=== PATIENT | male | born 1975 | race Caucasian/White ===

== ENCOUNTER → 2019-12-18 11:08 | Outpatient (BNVA) | payer BC, SELFPAY | PROVIDERS: Referring Provider Electrodiagnostic Medicine; Visit Provider Podiatrist Foot & Ankle Surgery | DX: M77.32 Calcaneal spur, left foot (principal); M77.31 Calcaneal spur, right foot; M79.672 Pain in left foot; M79.671 Pain in right foot | CPT/HCPCS: 73630 ==

== ENCOUNTER 2020-02-02 12:58 | Emergency (ER) | payer BC, SELFPAY ==
[2020-02-02 13:14] VITALS: BP 150/92; PULSE 69; RESP 16; TEMP 36.6; O2SAT 97; BMI 29.7
--- NOTE | 2020-02-02 13:17 | ED_ITS ---
HPI - Abdominal Pain General: Chief Complaint: Abdominal Pain Stated Complaint: L SIDED PAIN Time Seen by Provider: 02/02/20 13:08 History of Present Illness: HPI narrative: 44-year-old male presents emergency room with left-sided abdominal pain denies hematochezia melena hematemesis or calf cramps no fever he is not noticed any association with urination no dysuria urgency or frequency or hematuria denies vomiting or diarrhea began 2 days ago has been getting progressively worse today. He is not been taking large amounts of NSAIDs sick in a couple of Tylenol no previous abdominal surgeries. MD elicited complaint: abdominal pain Pertinent past history: none Onset (ago): day(s) (2 days) Pain Consistency: intermittent Location: LUQ Severity: moderate Quality: cramping and aching Radiation: LLQ Migration to: LLQ Exacerbating factors: nothing Relieving factors: nothing Associated Symptoms: Reports anorexia; Denies bloating, chills, coffee ground emesis, constipation, diarrhea, dysuria, fever(s), hematochezia, hematemesis, melena, nausea and vomiting Review of Systems Const: Denies: fever, chills, body aches, change in appetite, fatigue or malaise ENMT: Denies: throat pain, ear pain, nasal discharge or nasal congestion Card: Denies: chest pain, edema, shortness of breath on exertion or shortness of breath when lying down Resp: Denies: shortness of breath, productive cough or non-productive cough GI: Reports: abdominal pain; Denies: nausea, vomiting, vomiting blood, coffee grounds in vomit, diarrhea, constipation, bloating, blood in stool or black tarry stool : Denies: flank pain, painful urination, urinary frequency or urinary urgency Skin/Breast: Denies: rash or itching PFS ED PFSH: Medical History (Updated 02/02/20 @ 14:20 by Jroge Rodriguez DO) Hypertension Plantar fasciitis, bilateral Raynauds phenomenon Family History (Updated 12/18/19 @ 11:20 by Kianna Kaufman LPN) Other Hypertension Denies family history of Diabetes CAD (coronary artery disease) Clotting disorder Dementia Hyperlipidemia Psychiatric illness Chronic kidney disease (CKD) Suicide Anesthesia complication Bleeding disorder Family history of premature coronary artery disease Lung disease Cancer Stroke Social History (Updated 12/18/19 @ 11:21 by Kianna Kaufman LPN) Smoking and tobacco status: former smoker Second hand smoke exposure: Yes Alcohol intake: current Alcohol intake frequency: 3 or more drinks per day Desire information about alcohol rehabilitation?: No Lives independently: Yes Household members: spouse and children Housing: House Marital status: Number of children: 2 Physical Exam Const: COMMON NORMALS: no apparent distress GENERAL APPEARANCE: cooperative and comfortable ORIENTATION/CONSCIOUSNESS: Yes awake, Yes oriented to person, Yes oriented to place and Yes oriented to time HENMT: COMMON NORMALS: normocephalic, head/scalp atraumatic, hearing grossly normal bilaterally, external ears normal, EAC's normal, TM's normal bilaterally, nasal mucous membranes and turbinates normal, moist oral mucous membranes and oropharynx normal HEAD & SCALP: normocephalic and atraumatic NOSE: nasal mucous membranes and turbinates normal EXTERNAL EAR: Yes external ears normal EXTERNAL AUDITORY CANAL: EAC's normal TYMPANIC MEMBRANE: TM's normal bilaterally Eye: COMMON NORMALS: PERRL, EOMs intact bilaterally, conjunctivae normal and no scleral icterus CONJUNCTIVA: Yes conjunctivae normal PUPIL: Yes PERRL Neck/C-Spine: COMMON NORMALS: full ROM, no lymphadenopathy, supple and no JVD Lymph: LYMPHATIC: no lymphadenopathy noted and no lymphedema noted Resp: COMMON NORMALS: normal respiratory effort, no retractions, no use of accessory muscles and clear to auscultation bilaterally AUSCULTATION: clear to auscultation bilaterally Cardio: COMMON NORMALS: no JVD, regular rate, regular rhythm and no murmurs RATE: regular rate RHYTHM: regular rhythm GI: COMMON NORMALS: soft to palpation and no hepatosplenomegaly AUSCULTATION: Yes normoactive bowel sounds PALPATION: Yes soft, No tender, No guarding and Yes no hepatosplenomegaly Extremity: COMMON NORMALS: normal to inspection, normal capillary refill, no clubbing, cyanosis or edema, no calf tenderness and no pedal edema Neuro: SENSORIUM/ORIENTATION: Yes oriented to person, Yes oriented to place and Yes oriented to time Skin: COMMON NORMALS: no rashes or lesions noted GENERAL SKIN EXAM: no rashes or lesions noted Course Vital Signs: Vital signs: Vital Signs Temperature 97.9 F 02/02/20 13:14 Pulse Rate 57 L 02/02/20 13:50 Respiratory Rate 16 02/02/20 13:50 Blood Pressure 143/100 02/02/20 13:50 Pulse Oximetry 100 02/02/20 13:50 MDM - Abdominal Pain MDM Narrative: Medical decision making narrative: Robert findings with the patient he feels like the stones are he passed he said he had a brief of sudden pain and then suddenly all the pain was relieved. We will still go ahead and discharge home with a urine strainer as well as pain medications antiemetics and the tamsulosin. Follow-up with Dr. Martinez early next week. Lab Data: Attestation: I reviewed the patient's lab results. Labs: Lab Results 02/02/20 02/02/20 02/02/20 Range/Units 13:20 13:48 13:48 WBC 6.2 (4.0-10.0) 10^3/ uL RBC 5.29 (4.1-5.3) 10^6/u L Hgb 15.5 (11.7-16.6) g/dL Hct 47.2 (42.0-52.0) % MCV 89.2 (80-94) fL MCH 29.3 (28.0-34.0) pg MCHC 32.8 (30.0-36.0) g/dL RDW 13.2 (12.1-15.1) % Plt Count 228 (130-400) 10^3/c mm MPV 11.2 H (7.4-10.4) fL Neut % (Auto) 63.9 % Lymph % (Auto) 19.2 % [place] % (Auto) 9.5 % Eos % (Auto) 6.4 % Baso % (Auto) 0.8 % Neut # (Auto) 4.0 (1.8-7.7) 10^3/u L Lymph # (Auto) 1.2 (0.8-4.8) 10^3/u L [place] # (Auto) 0.6 (0.2-0.9) 10^3/u L Eos # (Auto) 0.4 (0.0-0.8) 10^3/u L Baso # (Auto) 0.1 (0.0-0.1) 10^3/u L Nucleated RBC % (a uto) 0 % Nucleated RBCs # 0.0 /100WBC Sodium 139 (136-145) mmol/L Potassium 4.4 (3.5-5.1) mmol/L Chloride 102 (98-107) mmol/L Carbon Dioxide 27 (22-29) mmol/L Anion Gap 14.4 (5-19) BUN 14 (6-20) mg/dL Creatinine 1.0 (0.7-1.2) mg/dL GFR Calculation 80.4 L (90-130) mL/min Glucose 162 H (65-115) mg/dL Calculated Osmolal ity 288 (285-295) mOsm/k g Calcium 9.8 (8.5-10.5) mg/dL Total Bilirubin 0.5 (0.15-1.2) mg/dL AST 18 (0-40) U/L ALT 22 (0-41) U/L Alkaline Phosphata se 69 (40-130) IU/L Total Protein 7.6 (6.6-8.7) g/dL Albumin 4.6 (3.5-5.2) g/dL Globulin 3.0 (1.3-4.6) g/dL Lipase 33 (13-60) U/L Urine Color Dark yellow (Yellow) Urine Appearance Hazy A (CLEAR) Urine pH 7 (5-7) Ur Specific Gravit y 1.010 (1.005-1.030) Urine Protein Neg (Negative) Urine Glucose (UA) Norm (Normal) Urine Ketones Negative (Negative) Urine Blood 3+ H (Negative) Urine Nitrate Negative (Negative) Urine Bilirubin Neg (NEGATIVE) Urine Urobilinogen 1 H (Negative) mg/dL Ur Leukocyte Una ase Negative (Negative) Urine RBC >100 H (0-2) /hpf Urine WBC None (0-5) /hpf Ur Squamous Epith Cells Rare (0-5) Urine Bacteria 1+ H (NONE) Urine Mucus 2+ Imaging Data ^: CT Abd/Pel: Radiologist's impression: PROCEDURE INFORMATION: Exam: CT Abdomen And Pelvis With Contrast Exam date and time: 02/02/2020 1:26 PM Age: 44 years old Clinical indication: Abdominal pain; Localized; Left upper quadrant (luq); Additional info: Abdominal pain TECHNIQUE: Imaging protocol: Computed tomography of the abdomen and pelvis with intravenous contrast. Total DLP: 1093.11 mGy-cm Radiation optimization: All CT scans at this facility use at least one of these dose optimization techniques: automated exposure control; mA and/or kV adjustment per patient size (includes targeted exams where dose is matched to clinical indication); or iterative reconstruction. Contrast material: Omnipaque 300; Contrast volume: 95 ml; Contrast route: IV; COMPARISON: No relevant prior studies available. FINDINGS: Liver: Normal. No mass. Gallbladder and bile ducts: The gallbladder is partially contracted. Pancreas: Normal. No ductal dilation. Spleen: Normal. No splenomegaly. Adrenals: Normal. No mass. Kidneys and ureters: The left kidney shows mild pelviectasis with mild perinephric stranding, with a 5.6 x 3.4 x 3.3 mm intraureteral calculus at the L5-S1 level. Mild relative delay and left renal enhancement. Right mid renal lateral 2.9 mm calyceal calculus. Stomach and bowel: Sigmoid colonic diverticula are present without evidence of diverticulitis. Appendix: The vermiform appendix is normal. Intraperitoneal space: Unremarkable. No free air. No significant fluid collection. Vasculature: The RIGHT iliac arteries show mild atherosclerotic calcifications without evidence of aneurysm. Calcified phleboliths are present in the lower pelvis bilaterally. Lymph nodes: No enlarged lymph nodes. Bladder: The urinary bladder is decompressed and difficult to assess. Reproductive: Unremarkable as visualized. Bones/joints: Anterior bridging bilateral sacroiliac joint marginal osteophytes. Mild chronic L1 vertebral body compression deformity. Lower thoracic and upper lumbar vertebral body marginal osteophytes. Mild L5-S1 spondylosis. Mild primary osteoarthritis of the bilateral hip joints. Soft tissues: Bilateral inguinal hernias are present containing only intra-abdominal fat. CT/CT abdomen pelvis w con* [id number] IMPRESSION: 1. Left obstructive uropathy secondary to an abdominal intraureteral calculus. 2. Right renal calyceal lithiasis. 3. Diverticulosis. 4. Bilateral small inguinal hernias. Radiation Dose CTDIVOL = (mGy): DLP = 1093.11 (mGy-cm) Dictated By:Abe Lyn MD Discharge Plan Discharge Patient Disposition: Home, Self-Care Clinical Impression: Left nephrolithiasis Condition: Stable Prescriptions: New hydrocodone-acetaminophen 5-325 mg tablet 1 tab PO Q6H PRN (Reason: pain) Qty: 30 RF: 0 Zofran 4 mg tablet 4 mg PO Q6H PRN (Reason: nausea and vomiting) Qty: 15 RF: 0 tamsulosin 0.4 mg capsule 0.4 mg PO DAILY Qty: 14 RF: 0 No Action lisinopril 40 mg tablet 40 mg PO DAILY RF: 0 Multiple Vitamins Tablet 1 tab PO DAILY RF: 0 vitamin B complex Tablet 1 tab PO DAILY RF: 0 Discharge Orders: Discharge Order (Routine); Ordered 02/02/20 Ordered By: Jorge Rodriguez Referrals: Keith Martinez MD [Physician] - (Case management will call for follow-up appointment with Dr. Martinez) Discharge Diet: Usual diet Discharge Activity: Increase activity as tolerated Activity Restrictions/Additional Instructions: Strain urine to collect stone for pathology. Case management will call to get you an appointment to follow-up with Dr. Martinez. Coding Level of Care Code ED Programmer Analyst for [facility] Fwd Exam Comprehensive
[2020-02-02 13:20] VITALS: BP 150/92; PULSE 68; RESP 16; O2SAT 100
[2020-02-02 13:50] VITALS: BP 143/100; PULSE 57; RESP 16; O2SAT 100
[2020-02-02 13:50] LABS: Add Urine Microscopic? YES; Bilirubin Urine Neg (NEGATIVE); Blood Urine 3+ (Negative); Glucose Urine UA Norm (Normal); Ketones Urine Negative (Negative); Leukocyte Esterase Urine Negative (Negative); Nitrate Urine Negative (Negative); Protein Urine Neg (Negative); Urine Appearance Hazy (CLEAR); Urine Color Dark Yellow (Yellow); Urobilinogen Urine 1 mg/dL (Negative); pH Urine 7 (5-7)
[2020-02-02] MEDS: sodium chloride 0.9% 1,000 ML 999 ML IV (13:50)
[2020-02-02 13:53] LABS: Basophils # 0.1 10^3/uL (0.0-0.1); Basophils % 0.8 %; Eosinophils # 0.4 10^3/uL (0.0-0.8); Eosinophils % 6.4 %; Hematocrit 47.2 % (42.0-52.0); Hemoglobin 15.5 g/dL (11.7-16.6); Lymphocytes # 1.2 10^3/uL (0.8-4.8); Lymphocytes % 19.2 %; Mean Corpuscular HGB Conc 32.8 g/dL (30.0-36.0); Mean Corpuscular Hemoglobin 29.3 pg (28.0-34.0); Mean Corpuscular Volume 89.2 fL (80-94); Mean Platelet Volume 11.2 fL (7.4-10.4); Monocytes # 0.6 10^3/uL (0.2-0.9); Monocytes % 9.5 %; Neutrophils % 63.9 %; Nucleated Red Blood Cells % 0 %; Platelet Count 228 10^3/cmm (130-400); Red Blood Count 5.29 10^6/uL (4.1-5.3); Red Cell Distribution Width 13.2 % (12.1-15.1); White Blood Count 6.2 10^3/uL (4.0-10.0)
[2020-02-02 13:54] LABS: Bacteria Urine 1+; Mucus Urine 2+; RBC Urine >100 /hpf (0-2); Squamous Epithelial Cell Urine RARE (0-5)
[2020-02-02 13:55] LABS: Add Urine Culture? Yes
--- NOTE | 2020-02-02 13:59 | PC.NURSE ---
Pt to CT
[2020-02-02] MEDS: iohexol 300 mg/mL 100 mL Btl IV (14:02)
[2020-02-02 14:12] LABS: Alanine Aminotransferase 22 U/L (0-41); Albumin Level 4.6 g/dL (3.5-5.2); Alkaline Phosphatase 69 IU/L (40-130); Anion Gap 14.4 (5-19); Aspartate Amino Transferase 18 U/L (0-40); Blood Urea Nitrogen 14 mg/dL (6-20); Calcium 9.8 mg/dL (8.5-10.5); Carbon Dioxide 27 mmol/L (22-29); Chloride 102 mmol/L (98-107); Glomerular Filtration Rate 80.4 mL/min (90-130); Glucose 162 mg/dL (65-115); Osmolality Calculated 288 mOsm/kg (285-295); Potassium 4.4 mmol/L (3.5-5.1); Sodium 139 mmol/L (136-145); Total Bilirubin 0.5 mg/dL (0.15-1.2); Total Protein 7.6 g/dL (6.6-8.7)
--- NOTE | 2020-02-02 14:17 | PC.NURSE ---
Pt returned from CT
[2020-02-02 14:43] LABS: Lipase 33 U/L (13-60)
[2020-02-02 15:01] VITALS: BP 118/99; PULSE 69; RESP 17; O2SAT 98
--- NOTE | 2020-02-04 10:41 | DCPLANNER ---
cattle manager had message to schedule a follow up appointment for patient with Dr. Martinez. cattle manager called the office of Dr. Martinez, spoke with Rita. cattle manager gave clinic patients information, was told that patients information would be printed and given to Kathya for review. Clinic will call patient with appointment information. cattle manager will call for appointment information.
--- NOTE | 2020-02-07 10:00 | DCPLANNER ---
Patient had an appointment scheduled for 02.05.[address] Martinez. Patient did attend the appointment.
== END 2020-02-02 15:03 | disposition home or self-care (01) ==
PROVIDERS: Emergency Provider Family Medicine
DX: N20.0 Calculus of kidney (principal); I10 Essential (primary) hypertension; I73.00 Raynaud's syndrome without gangrene; Z87.891 Personal history of nicotine dependence
CPT/HCPCS: 12345; 36415; 74177; 80053; 81001; 83690; 85025; 87086; 96360; 96361; 96374; 96375; 99284; A9270; J7030; Q9967

== ENCOUNTER 2020-02-05 10:29 | Emergency (ER) | payer BC, SELFPAY ==
[2020-02-05 10:42] VITALS: BP 135/89; RESP 51; TEMP 36.5; O2SAT 98; BMI 29.8
--- NOTE | 2020-02-05 10:56 | CT_ITS ---
WS: [id number] CT ABDOMEN PELVIS TECHNIQUE: Noncontrast CT of the abdomen and pelvis with coronal and sagittal reformatted images. CLINICAL INFORMATION: Right flank pain COMPARISON: February 02, 2020 DLP: 1605.[address] scans at [facility] use at least one of these dose optimization techniques: automat ed exposure control; mA and/or kV adjustment per patient size (includes targeted exams where dose is matched to clinical indication); or iterative reconstruction. FINDINGS: Previously described left obstructive uropathy has improved. Calculus now at the distal UVJ bladder o rifice measuring 5.5 mm. New mild right ureterectasis but no evidence of obstructing right ureteral calculus. Previously descr ibed right renal parenchymal calculus is no longer visualized and likely passed in the interval accou nting for right flank pain and ureterectasis. Mild diffuse bladder wall thickening can be seen with chronic cystitis or bladder outlet obstruction . Calcified slightly enlarged prostate. Prostate measures approximately 2.5 x 4.6 cm. No other significant changes from previous. Lung bases are well aerated. Noncontrast liver is normal. Normal noncontrast gallbladder. Adrenal glands are normal. Noncontrast pancreas is unremarkable. Nor mal GE junction. Normal caliber abdominal aorta. Diverticulosis. No evidence of acute diverticulitis. No evidence of small or large bowel obstruction. Normal appendix. Incidental fat-containing bilatera l inguinal hernias. No inguinal lymphadenopathy. CT/CT kidney stone [id number] IMPRESSION: 1. Previously described obstructing left ureteral calculus has traversed dista lly now at the UVJ in the bladder orifice. Obstructive left uropathy findings h ave improved. 2. No evidence of obstructing right ureteral calculus. Although mild right ure terectasis is new likely due to recently passed calculus. Previously described right renal parenchymal calculus is no longer visualized and likely passed in t he interval. 3. No other significant changes from previous
--- NOTE | 2020-02-05 10:59 | W.ED.ABDPA2 ---
Documented by User: ROBERT Vale 02/06/20 07:15 HPI - Abdominal Pain General: Chief Complaint: Abdominal Pain Stated Complaint: ABDOMEN PAIN Time Seen by Provider: 02/05/20 10:42 History of Present Illness: HPI narrative: Patient is a 44-year-old male who comes to the ED with right flank pain. Patient was recently seen here on February 01 and diagnosed with a left ureter kidney stone. Patient started having new pain on his right flank and described them as similar to his previous kidney stone. Patient says he had some blood in the urine couple days ago. He has been straining his urine but has not caught a stone, but left side/flank pain has resolved. He currently takes Flomax and was scheduled to see Dr. Martinez today, but he called their office to discuss his new symptoms of right-sided flank pain and Dr. Martinez told him to come to the ED to be evaluated and to get a CT scan. While here in the ED his right flank pain is very mild and does not want any meds for pain. He was having nausea this morning that has since resolved. Denies any fever or chills, chest pain, shortness of breath, dysuria, diarrhea, nausea/vomiting. Associated Symptoms: Reports hematuria and nausea; Denies chills, constipation, diarrhea, dysuria, fever(s), hematochezia and vomiting Review of Systems Const: Denies: fever, chills or fatigue Eyes: Denies: change in vision or eye discomfort ENMT: Denies: throat pain, painful swallowing, nasal discharge or nasal congestion Card: Denies: chest pain, palpitations, edema, swelling of feet/ankles, shortness of breath on exertion or shortness of breath when lying down Resp: Denies: shortness of breath, productive cough or non-productive cough GI: Reports: nausea; Denies: abdominal pain, vomiting, diarrhea, constipation or blood in stool : Reports: flank pain and blood in urine; Denies: difficulty urinating or painful urination Musc: Denies: neck pain, back pain or extremity swelling Skin/Breast: Denies: rash or new lesion Neuro: Denies: headache, numbness in extremities or weakness in extremities PFS ED PFSH: Medical History Calculus of proximal left ureter Hypertension Plantar fasciitis, bilateral Raynauds phenomenon Right renal stone Right ureteral calculus Surgical History H/O thumb surgery Family History Father Cancer prostate cancer Heart disease Mother Hypertension Denies family history of Diabetes CAD (coronary artery disease) Clotting disorder Dementia Hyperlipidemia Psychiatric illness Chronic kidney disease (CKD) Suicide Anesthesia complication Bleeding disorder Family history of premature coronary artery disease Lung disease Stroke Social History Smoking and tobacco status: former smoker Second hand smoke exposure: Yes Alcohol intake: current Alcohol intake frequency: holidays/special occasions only Desire information about alcohol rehabilitation?: No Lives independently: Yes Household members: spouse and children Housing: House Marital status: Number of children: 2 Current occupational status: employed History of recent travel: No Physical Exam Const: COMMON NORMALS: no apparent distress, oriented x3 and healthy appearing GENERAL APPEARANCE: comfortable; not in distress HENMT: COMMON NORMALS: normocephalic HEAD & SCALP: normocephalic MOUTH: oral and palatal mucosa normal THROAT: posterior oropharynx normal and uvula midline Eye: COMMON NORMALS: PERRL PUPIL: Yes PERRL Neck/C-Spine: COMMON NORMALS: supple GENERAL: Yes normal visual inspection Resp: COMMON NORMALS: normal respiratory effort, no retractions, no use of accessory muscles and clear to auscultation bilaterally EFFORT & INSPECTION: Yes able to speak in complete sentences and No respiratory distress AUSCULTATION: clear to auscultation bilaterally Cardio: COMMON NORMALS: regular rate, regular rhythm, S1 normal heart sound, S2 normal heart sound, no gallops, no clicks, no murmurs and peripheral pulses 2+ throughout RATE: regular rate RHYTHM: regular rhythm HEART SOUNDS: S1 normal and S2 normal PERIPHERAL PULSES: pulses 2+ throughout GI: COMMON NORMALS: normal to inspection, nondistended, normoactive bowel sounds, soft to palpation, non-tender and no masses AUSCULTATION: Yes normoactive bowel sounds PALPATION: Yes soft : COMMON NORMALS: Yes no CVA tenderness BLADDER/KIDNEY EXAM: Yes bladder normal to palpation and Yes no CVA tenderness Back/Pelvis: COMMON NORMALS: no CVA tenderness Extremity: COMMON NORMALS: normal to inspection Neuro: COMMON NORMALS: oriented x3 GAIT: Yes normal gait Skin: COMMON NORMALS: no rashes or lesions noted GENERAL SKIN EXAM: no rashes or lesions noted and dry skin Course Vital Signs: Vital signs: Vital Signs Temperature 97.7 F 02/05/20 10:42 Pulse Rate 73 02/05/20 12:41 Respiratory Rate 17 02/05/20 12:41 Blood Pressure 132/82 02/05/20 12:41 Pulse Oximetry 98 02/05/20 12:41 MDM - Abdominal Pain MDM Narrative: Medical decision making narrative: Patient is a 44-year-old male who comes to the ED with right flank pain. The urinalysis was positive for blood. CBC and CMP were normal. CT showed no obstructing stone in the right or left ureters. Previous left ureter stone has now moved into the bladder. Also previously right renal parenchymal calculus seen on previous scan is no longer visualized. Evidence of right ureterectasis, along with clinical symptoms suggestive of patient recently passing right-sided kidney stone. Patient was told to continue taking tamsulosin and has a follow-up appointment with Dr. Martinez set up. He was told to continue straining urine to catch stone and to drink plenty of fluids. Patient understood and agreed with plan. Return if symptoms worsen. Lab Data: Attestation: I reviewed the patient's lab results. Labs: Lab Results 02/05/20 02/05/20 02/05/20 Range/Units 11:10 11:10 12:01 WBC 5.7 (4.0-10.0) 10^3/ uL RBC 4.74 (4.1-5.3) 10^6/u L Hgb 13.9 (11.7-16.6) g/dL Hct 42.8 (42.0-52.0) % MCV 90.3 (80-94) fL MCH 29.3 (28.0-34.0) pg MCHC 32.5 (30.0-36.0) g/dL RDW 13.2 (12.1-15.1) % Plt Count 186 (130-400) 10^3/c mm MPV 11.3 H (7.4-10.4) fL Neut % (Auto) 67.8 % Lymph % (Auto) 18.0 % Loving % (Auto) 7.0 % Eos % (Auto) 6.3 % Baso % (Auto) 0.7 % Neut # (Auto) 3.9 (1.8-7.7) 10^3/u L Lymph # (Auto) 1.0 (0.8-4.8) 10^3/u L Loving # (Auto) 0.4 (0.2-0.9) 10^3/u L Eos # (Auto) 0.4 (0.0-0.8) 10^3/u L Baso # (Auto) 0.0 (0.0-0.1) 10^3/u L Nucleated RBC % (a uto) 0 % Nucleated RBCs # 0.0 /100WBC Sodium 141 (136-145) mmol/L Potassium 4.4 (3.5-5.1) mmol/L Chloride 104 (98-107) mmol/L Carbon Dioxide 26 (22-29) mmol/L Anion Gap 15.4 (5-19) BUN 10 (6-20) mg/dL Creatinine 0.9 (0.7-1.2) mg/dL GFR Calculation 90.8 (90-130) mL/min Glucose 130 H (65-115) mg/dL Calculated Osmolal ity 290 (285-295) mOsm/k g Calcium 9.7 (8.5-10.5) mg/dL Total Bilirubin 0.7 (0.15-1.2) mg/dL AST 17 (0-40) U/L ALT 19 (0-41) U/L Alkaline Phosphata se 57 (40-130) IU/L Total Protein 7.0 (6.6-8.7) g/dL Albumin 4.1 (3.5-5.2) g/dL Globulin 2.9 (1.3-4.6) g/dL Lipase 15 (13-60) U/L Urine Color Yellow (Yellow) Urine Appearance Clear (CLEAR) Urine pH 6 (5-7) Ur Specific Gravit y 1.015 (1.005-1.030) Urine Protein Neg (Negative) Urine Glucose (UA) Norm (Normal) Urine Ketones Negative (Negative) Urine Blood 3+ H (Negative) Urine Nitrate Negative (Negative) Urine Bilirubin Neg (NEGATIVE) Urine Urobilinogen Norm (Negative) mg/dL Ur Leukocyte Una ase Negative (Negative) Urine RBC 15-25 H (0-2) /hpf Urine WBC None (0-5) /hpf Ur Squamous Epith Cells 0-4 H (0-5) Urine Bacteria 1+ H (NONE) Urine Mucus 4+ Imaging Data ^: CT Abd/Pel: Attestation: I personally reviewed and interpreted this imaging study as follows: Radiologist's impression: [address] [place] [address] CT Scan Report Signed Patient: David Antonio Unit #: [id number] : 1975 Age/Sex: 44 / M ADM Date: 02/05/20 Loc: ER Room/Bed: Attending Dr: Ordering Provider/Ordering MD: Demond Estes Date of Service: 02/05/20 Procedure(s): CT kidney stone [address]47 Accession Number(s): [id number] Report Number: [id number] WS: [id number] CT ABDOMEN PELVIS TECHNIQUE: Noncontrast CT of the abdomen and pelvis with coronal and sagittal reformatted images. CLINICAL INFORMATION: Right flank pain COMPARISON: February 02, 2020 DLP: 1605.[address] scans at [facility] use at least one of these dose optimization techniques: automated exposure control; mA and/or kV adjustment per patient size (includes targeted exams where dose is matched to clinical indication); or iterative reconstruction. FINDINGS: Previously described left obstructive uropathy has improved. Calculus now at the distal UVJ bladder orifice measuring 5.5 mm. New mild right ureterectasis but no evidence of obstructing right ureteral calculus. Previously described right renal parenchymal calculus is no longer visualized and likely passed in the interval accounting for right flank pain and ureterectasis. Mild diffuse bladder wall thickening can be seen with chronic cystitis or bladder outlet obstruction. Calcified slightly enlarged prostate. Prostate measures approximately 2.5 x 4.6 cm. No other significant changes from previous. Lung bases are well aerated. Noncontrast liver is normal. Normal noncontrast gallbladder. Adrenal glands are normal. Noncontrast pancreas is unremarkable. Normal GE junction. Normal caliber abdominal aorta. Diverticulosis. No evidence of acute diverticulitis. No evidence of small or large bowel obstruction. Normal appendix. Incidental fat-containing bilateral inguinal hernias. No inguinal lymphadenopathy. CT/CT kidney stone [id number] IMPRESSION: 1. Previously described obstructing left ureteral calculus has traversed distally now at the UVJ in the bladder orifice. Obstructive left uropathy findings have improved. 2. No evidence of obstructing right ureteral calculus. Although mild right ureterectasis is new likely due to recently passed calculus. Previously described right renal parenchymal calculus is no longer visualized and likely passed in the interval. 3. No other significant changes from previous Dictated By: Silvio Condon MD Signed By: Silvio Condon MD Signed Date/Time: 02/05/20 1207 DD/ 1152 Discharge Plan Discharge Patient Disposition: Home, Self-Care Clinical Impression: Ureterectasis, Calculus in bladder Condition: Stable Prescriptions: No Action lisinopril 40 mg tablet 40 mg PO DAILY RF: 0 Tylenol 325 mg Tablet 325 - 650 mg PO PRN RF: 0 vitamin B complex Tablet 1 tab PO DAILY RF: 0 hydrocodone-acetaminophen 5-325 mg tablet 1 tab PO Q6H PRN (Reason: pain) Qty: 30 RF: 0 ondansetron HCl [Zofran] 4 mg tablet 4 mg PO Q6H PRN (Reason: nausea and vomiting) Qty: 15 RF: 0 tamsulosin 0.4 mg capsule 0.4 mg PO DAILY Qty: 14 RF: 0 Discharge Orders: Discharge Order (Routine); Ordered 02/05/20 Ordered By: Demodn Estes Discharge Diet: Regular Discharge Activity: Resume usual activity Patient Instructions: Kidney Stones (ED), How to Strain Your Urine (ED) Activity Restrictions/Additional Instructions: Call Dr. Martinez today to reschedule your appointment. Continue taking all previously prescribed meds. Continue taking your dose of tamsulosin to help with passing stone. Drink plenty of fluids and stay hydrated. Take ibuprofen or Aleve for any pain. Return to the ED for having worsening symptoms. Discharge Date/Time: 02/05/20 12:42 Coding Level of Care Code ED Color Strainer for Chg Fwd Exam Comprehensive Documented by User: Jorge Rodriguez DO 02/06/20 09:44 HPI - Abdominal Pain General: Chief Complaint: Abdominal Pain Stated Complaint: ABDOMEN PAIN Time Seen by Provider: 02/05/20 10:42 PFSH ED PFSH: Medical History Calculus of proximal left ureter Hypertension Plantar fasciitis, bilateral Raynauds phenomenon Right renal stone Right ureteral calculus Surgical History H/O thumb surgery Family History Father Cancer prostate cancer Heart disease Mother Hypertension Denies family history of Diabetes CAD (coronary artery disease) Clotting disorder Dementia Hyperlipidemia Psychiatric illness Chronic kidney disease (CKD) Suicide Anesthesia complication Bleeding disorder Family history of premature coronary artery disease Lung disease Stroke Social History Smoking and tobacco status: former smoker Second hand smoke exposure: Yes Alcohol intake: current Alcohol intake frequency: holidays/special occasions only Desire information about alcohol rehabilitation?: No Lives independently: Yes Household members: spouse and children Housing: House Marital status: Number of children: 2 Current occupational status: employed History of recent travel: No Course Vital Signs: Vital signs: Vital Signs Temperature 97.7 F 02/05/20 10:42 Pulse Rate 73 02/05/20 12:41 Respiratory Rate 17 02/05/20 12:41 Blood Pressure 132/82 02/05/20 12:41 Pulse Oximetry 98 02/05/20 12:41 MDM - Abdominal Pain MDM Narrative: Medical decision making narrative: Patient discussed with midlevel chart, reviewed agree with assessment and plan Lab Data: Labs: Lab Results 02/05/20 02/05/20 02/05/20 Range/Units 11:10 11:10 12:01 WBC 5.7 (4.0-10.0) 10^3/ uL RBC 4.74 (4.1-5.3) 10^6/u L Hgb 13.9 (11.7-16.6) g/dL Hct 42.8 (42.0-52.0) % MCV 90.3 (80-94) fL MCH 29.3 (28.0-34.0) pg MCHC 32.5 (30.0-36.0) g/dL RDW 13.2 (12.1-15.1) % Plt Count 186 (130-400) 10^3/c mm MPV 11.3 H (7.4-10.4) fL Neut % (Auto) 67.8 % Lymph % (Auto) 18.0 % Loving % (Auto) 7.0 % Eos % (Auto) 6.3 % Baso % (Auto) 0.7 % Neut # (Auto) 3.9 (1.8-7.7) 10^3/u L Lymph # (Auto) 1.0 (0.8-4.8) 10^3/u L Loving # (Auto) 0.4 (0.2-0.9) 10^3/u L Eos # (Auto) 0.4 (0.0-0.8) 10^3/u L Baso # (Auto) 0.0 (0.0-0.1) 10^3/u L Nucleated RBC % (a uto) 0 % Nucleated RBCs # 0.0 /100WBC Sodium 141 (136-145) mmol/L Potassium 4.4 (3.5-5.1) mmol/L Chloride 104 (98-107) mmol/L Carbon Dioxide 26 (22-29) mmol/L Anion Gap 15.4 (5-19) BUN 10 (6-20) mg/dL Creatinine 0.9 (0.7-1.2) mg/dL GFR Calculation 90.8 (90-130) mL/min Glucose 130 H (65-115) mg/dL Calculated Osmolal ity 290 (285-295) mOsm/k g Calcium 9.7 (8.5-10.5) mg/dL Total Bilirubin 0.7 (0.15-1.2) mg/dL AST 17 (0-40) U/L ALT 19 (0-41) U/L Alkaline Phosphata se 57 (40-130) IU/L Total Protein 7.0 (6.6-8.7) g/dL Albumin 4.1 (3.5-5.2) g/dL Globulin 2.9 (1.3-4.6) g/dL Lipase 15 (13-60) U/L Urine Color Yellow (Yellow) Urine Appearance Clear (CLEAR) Urine pH 6 (5-7) Ur Specific Gravit y 1.015 (1.005-1.030) Urine Protein Neg (Negative) Urine Glucose (UA) Norm (Normal) Urine Ketones Negative (Negative) Urine Blood 3+ H (Negative) Urine Nitrate Negative (Negative) Urine Bilirubin Neg (NEGATIVE) Urine Urobilinogen Norm (Negative) mg/dL Ur Leukocyte Una ase Negative (Negative) Urine RBC 15-25 H (0-2) /hpf Urine WBC None (0-5) /hpf Ur Squamous Epith Cells 0-4 H (0-5) Urine Bacteria 1+ H (NONE) Urine Mucus 4+ Discharge Plan Discharge Patient Disposition: Home, Self-Care Clinical Impression: Ureterectasis, Calculus in bladder Condition: Stable Prescriptions: No Action lisinopril 40 mg tablet 40 mg PO DAILY RF: 0 Tylenol 325 mg Tablet 325 - 650 mg PO PRN RF: 0 vitamin B complex Tablet 1 tab PO DAILY RF: 0 hydrocodone-acetaminophen 5-325 mg tablet 1 tab PO Q6H PRN (Reason: pain) Qty: 30 RF: 0 ondansetron HCl [Zofran] 4 mg tablet 4 mg PO Q6H PRN (Reason: nausea and vomiting) Qty: 15 RF: 0 tamsulosin 0.4 mg capsule 0.4 mg PO DAILY Qty: 14 RF: 0 Discharge Orders: Discharge Order (Routine); Ordered 02/05/20 Ordered By: Demond Estes Discharge Diet: Regular Discharge Activity: Resume usual activity Patient Instructions: Kidney Stones (ED), How to Strain Your Urine (ED) Activity Restrictions/Additional Instructions: Call Dr. Martinez today to reschedule your appointment. Continue taking all previously prescribed meds. Continue taking your dose of tamsulosin to help with passing stone. Drink plenty of fluids and stay hydrated. Take ibuprofen or Aleve for any pain. Return to the ED for having worsening symptoms. Discharge Date/Time: 02/05/20 12:42 Coding Level of Care Code ED Color Strainer for Odette Fwgin Exam Comprehensive
[2020-02-05 11:16] LABS: Basophils % 0.7 %; Eosinophils # 0.4 10^3/uL (0.0-0.8); Eosinophils % 6.3 %; Hematocrit 42.8 % (42.0-52.0); Hemoglobin 13.9 g/dL (11.7-16.6); Mean Corpuscular HGB Conc 32.5 g/dL (30.0-36.0); Mean Corpuscular Hemoglobin 29.3 pg (28.0-34.0); Mean Corpuscular Volume 90.3 fL (80-94); Mean Platelet Volume 11.3 fL (7.4-10.4); Monocytes # 0.4 10^3/uL (0.2-0.9); Neutrophils # 3.9 10^3/uL (1.8-7.7); Neutrophils % 67.8 %; Nucleated Red Blood Cells % 0 %; Platelet Count 186 10^3/cmm (130-400); Red Blood Count 4.74 10^6/uL (4.1-5.3); Red Cell Distribution Width 13.2 % (12.1-15.1); White Blood Count 5.7 10^3/uL (4.0-10.0)
[2020-02-05] MEDS: sodium chloride 0.9% 1,000 ML 999 ML IV (11:25)
[2020-02-05 11:39] LABS: Alanine Aminotransferase 19 U/L (0-41); Albumin Level 4.1 g/dL (3.5-5.2); Alkaline Phosphatase 57 IU/L (40-130); Anion Gap 15.4 (5-19); Aspartate Amino Transferase 17 U/L (0-40); Blood Urea Nitrogen 10 mg/dL (6-20); Calcium 9.7 mg/dL (8.5-10.5); Carbon Dioxide 26 mmol/L (22-29); Chloride 104 mmol/L (98-107); Creatinine Clr Calc Pharmacy 118.2816; Globulin 2.9 g/dL (1.3-4.6); Glomerular Filtration Rate 90.8 mL/min (90-130); Glucose 130 mg/dL (65-115); Lipase 15 U/L (13-60); Osmolality Calculated 290 mOsm/kg (285-295); Potassium 4.4 mmol/L (3.5-5.1); Sodium 141 mmol/L (136-145); Total Bilirubin 0.7 mg/dL (0.15-1.2)
[2020-02-05 12:09] VITALS: BP 123/81; PULSE 80; RESP 16; O2SAT 97
[2020-02-05 12:23] LABS: Bilirubin Urine Neg (NEGATIVE); Blood Urine 3+ (Negative); Glucose Urine UA Norm (Normal); Ketones Urine Negative (Negative); Nitrate Urine Negative (Negative); Protein Urine Neg (Negative); Specific Gravity, Urine 1.015 (1.005-1.030); Urine Appearance Clear (CLEAR); Urine Color Yellow (Yellow); pH Urine 6 (5-7)
[2020-02-05 12:24] LABS: Leukocyte Esterase Urine Negative (Negative); Urobilinogen Urine Norm (Negative)
[2020-02-05 12:29] LABS: Bacteria Urine 1+; Mucus Urine 4+; RBC Urine 15-25 /hpf (0-2); Squamous Epithelial Cell Urine 0-4 (0-5)
[2020-02-05 12:30] LABS: Add Urine Culture? Yes
[2020-02-05 12:41] VITALS: BP 132/82; PULSE 73; RESP 17; O2SAT 98
== END 2020-02-05 12:42 | disposition home or self-care (01) ==
PROVIDERS: Emergency Provider Physician Assistant
DX: N21.0 Calculus in bladder (principal); I10 Essential (primary) hypertension; I73.00 Raynaud's syndrome without gangrene; Z87.891 Personal history of nicotine dependence
CPT/HCPCS: 12345; 36415; 74176; 80053; 81001; 83690; 85025; 87086; 96360; 99283; J7030

== ENCOUNTER 2020-02-20 09:18 | Outpatient (CLI) | payer BC, SELFPAY ==
--- NOTE | 2020-02-20 08:15 | XR_ITS ---
WS: [id number] ABDOMEN KUB CLINICAL INFORMATION: Renal/ureteral calculi. COMPARISON: CT February 05, 2028 FINDINGS: 5 mm calculus at the left UVJ not definitely visualized on today's radiograph. Multiple pelvic phlebo liths. XR/XR KUB [id number] Impression: Recently described 5 mm calculus left UVJ not definitely visualized on today's radiograph.
== END 2020-02-20 09:19 | disposition home or self-care (01) ==
LOC: RAD 09:19
PROVIDERS: PCP Electrodiagnostic Medicine; Visit Provider Urology
DX: N20.1 Calculus of ureter (principal)
CPT/HCPCS: 74018; 81001; 82365

== ENCOUNTER 2021-02-22 08:43 | Outpatient (CLI) | payer OTHER, SELFPAY ==
--- NOTE | 2021-02-22 08:45 | XR_ITS ---
WS: [id number] Exam: XR KUB [id number] Date/Time of Exam: 02/22/2021 8:45 AM Reason For Exam: N20.0 - Calculus of kidney Comparison 02/20/2020. No bowel obstruction or free air. Visualized organ margins are intact. There are numerous nonspecific pelvic calcifications noted bilaterally. No calcifications noted in the region of the kidneys. XR/XR KUB [id number] IMPRESSION: 1. No acute abdominal finding. 2. Nonspecific pelvic calcifications.
== END 2021-02-22 08:44 | disposition home or self-care (01) ==
PROVIDERS: PCP Electrodiagnostic Medicine; Visit Provider Urology
DX: N20.0 Calculus of kidney (principal)
CPT/HCPCS: 74018; 81003

== ENCOUNTER 2021-03-23 14:29 | Outpatient (CLI) | payer OTHER, SELFPAY ==
--- NOTE | 2021-03-23 14:39 | XR_ITS ---
WS: [id number] Exam: XR chest 2V* [id number] Date/Time of Exam: 03/23/2021 2:47 PM Reason For Exam: ACUTE BRONCHITIS No priors. The lungs are clear. Normal cardiomediastinal structures and bony elements. Spondylosis of the thorac ic spine. XR/XR chest 2V* [id number] IMPRESSION: 1. No acute cardiopulmonary finding.
== END 2021-03-23 14:30 | disposition home or self-care (01) ==
PROVIDERS: PCP Electrodiagnostic Medicine; Visit Provider Nurse Practitioner Family
DX: J20.9 Acute bronchitis, unspecified (principal)
CPT/HCPCS: 71046

== ENCOUNTER 2022-06-23 15:11 | Outpatient (CLI) | payer OTHER, SELFPAY ==
[2022-06-23 16:53] LABS: Prostate Specific AG Urology 5.75 ng/mL (0-4)
== END 2022-06-23 15:12 | disposition home or self-care (01) ==
PROVIDERS: PCP Electrodiagnostic Medicine; Visit Provider Urology
DX: R97.20 Elevated prostate specific antigen [PSA] (principal)
CPT/HCPCS: 36415; 84153

== ENCOUNTER → 2022-06-27 13:13 | Outpatient (BNVA) | payer OTHER, SELFPAY | PROVIDERS: PCP Electrodiagnostic Medicine; Visit Provider Urology | DX: N20.9 Urinary calculus, unspecified (principal); R97.20 Elevated prostate specific antigen [PSA]; Z80.42 Family history of malignant neoplasm of prostate | CPT/HCPCS: 81003 ==

== ENCOUNTER 2022-12-26 11:51 | Outpatient (CLI) | payer OTHER, SELFPAY ==
[2022-12-26 13:26] LABS: Prostate Specific AG Urology 6.02 ng/mL (0-4)
== END 2022-12-26 11:52 | disposition home or self-care (01) ==
LOC: LAB 11:56
PROVIDERS: PCP Electrodiagnostic Medicine; Visit Provider Urology
DX: R97.20 Elevated prostate specific antigen [PSA] (principal)
CPT/HCPCS: 36415; 84153

== ENCOUNTER → 2022-12-27 09:07 | Outpatient (BNVA) | payer OTHER, SELFPAY | PROVIDERS: PCP Electrodiagnostic Medicine; Visit Provider Urology | DX: N20.9 Urinary calculus, unspecified (principal) | CPT/HCPCS: 81003 ==

== ENCOUNTER 2025-08-06 09:32 | Emergency (ER) | payer OTHER, SELFPAY ==
[2025-08-06] VITALS (11 sets, daily range): BP systolic 160–192; BP diastolic 104–115; PULSE 71–94; RESP 15–28; TEMP 36.6; O2SAT 94–99
--- NOTE | 2025-08-06 09:38 | CT_ITS ---
WS: [id number] CT HEAD TECHNIQUE: Noncontrast CT of the head obtained from the skullbase to the vertex. CLINICAL INFORMATION: Symptoms of acute stroke COMPARISON: None. DLP: All CT scans at [facility] use at least one of these dose optimization techniques: automated exposure control; mA and/or kV adjustment per patient size (includes targeted exams where dose is matched to clinical indication); or iterative reconstruction. FINDINGS: No evidence of intracranial hemorrhage or mass effect. Ventricular system and basal cisterns are patent. No extra-axial fluid collections. No evidence of mass or mass effect. Normal linn-white differentiation. Mild mucosal thickening in the ethmoid air cells. Mastoid air cells are well aerated. Normal posterior nasopharynx. CT/CT head thrombolytic [id number] IMPRESSION: 1. No evidence of intracranial hemorrhage or mass effect. 2. No acute intracranial findings. Notified Afia Lewis MD at 08/06/2025 9:53 AM.
--- NOTE | 2025-08-06 09:51 | XR_ITS ---
WS: [id number] Portable AP upright chest, 08/06/2025 Clinical Data: va Comparison: Two-view chest, 03/23/2021 Findings: No nodules, masses or effusions are seen. The heart is normal. The pulmonary vascularity is not increased. No pneumonia or pneumothorax is seen. Monitor leads are on the chest wall. XR/XR chest 1V portable [id number] Impression: Negative chest.
[2025-08-06 09:52] LABS: Hematocrit 48.9 % (37-53); Hemoglobin 16.30 g/dL (11.27-16.99); Mean Corpuscular HGB Conc 33.3 g/dL (30-55); Mean Corpuscular Hemoglobin 30.1 pg (27-33); Mean Corpuscular Volume 90.4 fl (82-101); Nucleated Red Blood Cells % 0 %; Platelet Count 187 10^3/cmm (157-399); Red Blood Count 5.41 10^6/uL (3.85-5.65); White Blood Count 5.85 10^3/uL (3.29-11.43)
--- NOTE | 2025-08-06 09:54 | ECG_ITS ---
[facility]: 2025-08-06 Pat Name: David Antonio Department: Room: Gender: Male Shock Absorption Floor Layer: : 1975 Requested By: Afia Lewis Order Number: [id number] Pamela MD: CARLY JACOBS Measurements Intervals [place] Rate: 88 P: 69 HI: 186 QRS: 64 QRSD: 100 T: 76 QT: 347 QTc: 422 Interpretive Statements SINUS RHYTHM No previous ECG available for comparison Electronically Signed On 08-07-2025 16:49:05 CDT by CARLY JACOBS [email or web address]
--- NOTE | 2025-08-06 09:58 | ED_ITS ---
HPI - Neuro Symptoms/Deficit 2 General: Chief Complaint: Neuro Symptoms/Deficit Stated Complaint: L arm and facial tingling, high bp Time Seen by Provider: 08/06/25 09:37 Source: patient Mode of arrival: ambulatory Limitations: no limitations History of Present Illness: 50-year-old male states at 0900 he start ed having some numbness down his left arm along with left side of face with tingling. He states this lasted roughly 30 minutes and has since resolved. Patient denies any headache denies any weakness denies any slurred speech or facial droop. Does have a history of high blood pressure denies any history of stroke in the past. Denied having chest pain Related Data Home Medications ?Medication ?Instructions ?Recorded ?Confirmed lisinopril 10 mg tablet 10 mg PO QAM 08/06/25 lisinopril 40 mg tablet 40 mg PO DAILY 08/06/2506/23 trazodone 50 mg tablet 50 mg PO BEDTIME 08/06/25 Previous Rx's ?Medication ?Instructions ?Recorded aspirin 81 mg tablet 81 mg PO DAILY #30 tabs 06/23 atorvastatin 80 mg tablet (Lipitor) 80 mg PO DAILY #30 tabs 08/06/25 Allergies Allergy/AdvReac Type Severity Reaction Status Date / Time codeine Allergy Mild Unknown Verified 12/27/22 09:09 [facility] ED 2 PFSH: Medical History Elevated PSA Right ureteral calculus Right renal stone Calculus of proximal left ureter Plantar fasciitis, bilateral Raynauds phenomenon Hypertension Surgical History H/O thumb surgery Family History Father Cancer prostate cancer Heart disease Mother Hypertension Social History Smoking and tobacco/nicotine status: never used tobacco/nicotine Alcohol intake: current Alcohol intake frequency: few times a week Marital status: Current occupational status: employed NIH stroke score 2 NIHSS: Level Of Consciousness - 1a: 0 Level Of Consciousness Questions - 1b: Both Correct Level Of Consciousness Commands - 1c: Both Correct Best Gaze - 2: Normal Visual [place] - 3: No Visual Loss Facial Palsy - 4: N ormal Motor Arm Right - 5: No Drift Motor Arm Left - 5: No Drift Motor Leg Right - 6: No Drift Motor Leg Left - 6: No Drift Limb Ataxia - 7: A bsent Sensory - 8: Normal Best Language - 9: No Aphasia Dysarthia - 10: Normal Extinction And Inattention - 11: 0 Score: Total Score: 0 Physical Exam 2 Const: COMMON NORMALS: no acute distress, patient oriented x3 and healthy appearing HENMT: COMMON NORMALS: normocephalic and atraumatic HEAD & SCALP: n ormocephalic and atraumatic Eye: COMMON NORMALS: Equal, round and reactive pupils present and EOMs intact bilaterally PUPIL: Yes Equal, round and reactive pupils present Neck/C-Spine: COMMON NORMALS: full ROM and supple Chest: COMMONS NORMALS: normal inspection of the chest and normal palpation of entire chest wall Resp: COMMON NORMALS: normal respiratory effort, No retractions, No use of accessory muscles and clear to auscultation bilaterally AUSCULTATION: clear to auscultation bilaterally Cardio: COMMON NORMALS: regular rate, regular rhythm and No murmurs present (Cardio) RATE: regular rate RHYTHM: regular rhythm GI: COMMON NORMALS: Normal to inspection, nondistended, normoactive bowel sounds present, Soft to palpation, non-tender and no masses PALPATION: Yes Soft to palpation Extremity: COMMON NORMALS: normal to inspection and full ROM Neuro: COMMON NORMALS: patient oriented x3, moves all extremities and no focal motor deficits Psych: COMMON NORMALS: mental status grossly normal, Normal thought process present and cooperative THOUGHT PROCESS: Normal thought process present Skin: COMMON NORMALS: no rashes or lesions noted and no wounds GENERAL SKIN EXAM: no rashes or lesions noted Course 2 Vital Signs: Vital signs: Vital Signs Temperature 97.9 F 08/06/25 10:14 Pulse Rate 76 08/06/25 10:52 Respiratory Rate 21 H 08/06/25 10:40 Blood Pressure 160/104 08/06/25 10:52 Pulse Oximetry 97 08/06/25 10:52 Oxygen Delivery Me thod Room Air 08/06/25 10:43 MDM - Neuro Symptoms/Deficit Medical Decision Making Patient presents here with numbness to left face and arm differential included CVA, TIA, intracerebral hemorrhage. Did rule out hemorrhage with CT which showed no acute abnormalities he had no headache either with no signs of any type of hemorrhage. He has no signs of stroke as his symptoms have completely resolved here. Could be just random paresthesias versus a possible TIA. I did discuss this finding with him and I did offer him admission and he would like to go home I did speak to his primary care doctor Dr. Vallecillo start patient on a baby aspirin along with atorvastatin and Dr. Vallecillo states that he will see him in 1 to 2 days to do further outpatient workup. He is stable for discharge at this time informed he has any worsening symptoms he is to return I did go over his labs and CT with him. He understands agrees to plan. I did interpret his chest x-ray showed no acute abnormalities. Interpret his EKG as well that showed normal sinus rhythm heart rate [address] elevation QRS 100 QTc 393 Medical Records I reviewed the patient's medical records. Lab Data I reviewed the patient's lab results. 08/06/25 09:41 08/06/25 09:[address] 08/06/25 09:38 IMPRESSION: 1. No evidence of intracranial hemorrhage or mass effect. 2. No acute intracranial findings. Notified Afia Lewis MD at 08/06/2025 9:53 AM. Chest X-Ray 08/06/25 09:51 Impression: Negative chest. Laboratory Results WBC 5.85 10^3/uL (3.29-11.43) 08/06/25 09:41 RBC 5.41 10^6/uL (3.85-5.65) 08/06/25 09:41 Hgb 16.30 g/dL (11.27-16.99) 08/06/25 09:41 Hct 48.9 % (37-53) 08/06/25 09:41 MCV 90.4 fl (82-101) 08/06/25 09:41 MCH 30.1 pg (27-33) 08/06/25 09:41 MCHC 33.3 g/dL (30-55) 08/06/25 09:41 RDW 12.9 % (12.1-15.1) 08/06/25 09:41 Plt Count 187 10^3/cmm (157-399) 08/06/25 09:41 MPV 11.3 fL (7.4-10.4) H 08/06/25 09:41 Neut % (Auto) 47.4 % 08/06/25 09:41 Lymph % (Auto) 34.5 % 08/06/25 09:41 [place] % (Auto) 10.8 % 08/06/25 09:41 Eos % (Auto) 5.8 % 08/06/25 09:41 Baso % (Auto) 1.2 % 08/06/25 09:41 Neut # (Auto) 2.77 10^3/uL (1.8-7.7) 08/06/25 09:41 Lymph # (Auto) 2.0 10^3/uL (0.8-4.8) 08/06/25 09:41 [place] # (Auto) 0.6 10^3/uL (0.2-0.9) 08/06/25 09:41 Eos # (Auto) 0.3 10^3/uL (0.0-0.8) 08/06/25 09:41 Baso # (Auto) 0.1 10^3/uL (0.0-0.1) 08/06/25 09:41 Nucleated RBC % (auto) 0 % 08/06/25 09:41 Nucleated RBCs # 0.0 /100WBC 08/06/25 09:41 PT 13.20 SECONDS (12.1-14.9) 08/06/25 09:41 INR 0.94 (0.8-1.2) 08/06/25 09:41 APTT 29.3 SECONDS (23.9-36.7) 08/06/25 09:41 Sodium 139 mmol/L (136-145) 08/06/25 09:41 Potassium 3.8 mmol/L (3.5-5.1) 08/06/25 09:41 Chloride 102 mmol/L (98-107) 08/06/25 09:41 Carbon Dioxide 25 mmol/L (22-29) 08/06/25 09:41 Anion Gap 15.8 (5-19) 08/06/25 09:41 BUN 15 mg/dL (6-20) 08/06/25 09:41 Creatinine 0.9 mg/dL (0.7-1.2) 08/06/25 09:41 GFR Calculation 88.6 mL/min (90-130) L 08/06/25 09:41 Glucose 158 mg/dL (65-115) H 08/06/25 09:41 POC Glucose 157 mg/dL (70-110) H 08/06/25 09:52 Calculated Osmolality 292 mOsm/kg (285-295) 08/06/25 09:41 Calcium 9.5 mg/dL (8.5-10.5) 08/06/25 09:41 Total Bilirubin 0.7 mg/dL (0.15-1.2) 08/06/25 09:41 AST 14 U/L (0-40) 08/06/25 09:41 ALT 15 U/L (0-41) 08/06/25 09:41 Alkaline Phosphatase 62 U/L (40-130) 08/06/25 09:41 Total Protein 8.0 g/dL (6.6-8.7) 08/06/25 09:41 Albumin 4.8 g/dL (3.5-5.2) 08/06/25 09:41 Globulin 3.2 g/dL (1.3-4.6) 08/06/25 09:41 Urine Color Yellow (Yellow) 08/06/25 10:40 Urine Appearance Clear (CLEAR) 08/06/25 10:40 Urine pH 5.5 (5-7) 08/06/25 10:40 Ur Specific [place] 1.012 (1.005-1.030) 08/06/25 10:40 Urine Protein Negative (Negative) 08/06/25 10:40 Urine Glucose (UA) Negative (Normal) 08/06/25 10:40 Urine Ketones Negative (Negative) 08/06/25 10:40 Urine Blood Negative (Negative) 08/06/25 10:40 Urine Nitrate Negative (Negative) 08/06/25 10:40 Urine Bilirubin Negative (Negative) 08/06/25 10:40 Urine Urobilinogen 0.2 mg/dL (Negative) 08/06/25 10:40 Ur Leukocyte Esterase Negative (Negative) 08/06/25 10:40 Amorphous Sediment Not Reportable 08/06/25 10:40 All radiology interpretation(s) finalized by discharge EKG Data EKG 1: I personally reviewed and interpreted this EKG as follows: EKG interpretation date: 08/06/25 EKG interpretation time: 09:54 Interpretation: nsr hr [address] elevation qrs 100 qtc 393 Discharge Plan Discharge Patient Disposition: Home Clinical Impression: Transient cerebral ischemia Condition: Stable Prescriptions: New aspirin 81 mg tablet 81 mg PO DAILY Qty: 30 0RF atorvastatin [Lipitor] 80 mg tablet 80 mg PO DAILY Qty: 30 0RF No Action trazodone 50 mg tablet 50 mg PO BEDTIME lisinopril 10 mg tablet 10 mg PO QAM lisinopril 40 mg tablet 40 mg PO DAILY Discharge Orders: Discharge ED (Routine); Ordered 08/06/25 Ordered By: Afia Lewis Referrals: Elias Vallecillo DO [Primary Care Provider, [facility]] - 1-3 days Discharge Diet: Advance as tolerated Discharge Activity: Resume usual activity Patient Instructions: Transient Ischemic Attack (ED) Print Language: Maori Coding Level of Care Code ED 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
[2025-08-06 10:01] LABS: INR 0.94 (0.8-1.2); Prothrombin Time 13.20 SECONDS (12.1-14.9)
[2025-08-06 10:02] LABS: Partial Thromboplastin Time 29.3 SECONDS (23.9-36.7)
[2025-08-06 10:08] LABS: Alanine Aminotransferase 15 U/L (0-41); Albumin Level 4.8 g/dL (3.5-5.2); Alkaline Phosphatase 62 U/L (40-130); Anion Gap 15.8 (5-19); Aspartate Amino Transferase 14 U/L (0-40); Blood Urea Nitrogen 15 mg/dL (6-20); Calcium 9.5 mg/dL (8.5-10.5); Carbon Dioxide 25 mmol/L (22-29); Chloride 102 mmol/L (98-107); Creatinine Clr Calc Pharmacy 117.3844; Globulin 3.2 g/dL (1.3-4.6); Glucose 158 mg/dL (65-115); Osmolality Calculated 292 mOsm/kg (285-295); Potassium 3.8 mmol/L (3.5-5.1); Sodium 139 mmol/L (136-145); Total Protein 8.0 g/dL (6.6-8.7)
[2025-08-06 10:55] LABS: Add Urine Microscopic? NO
[2025-08-06 11:14] LABS: Glucose Urine UA Negative (Normal); Nitrate Urine Negative (Negative); Specific Gravity, Urine 1.012 (1.005-1.030)
[2025-08-06 11:21] LABS: PCP Screen Urine Negative (Negative)
[2025-08-06 11:23] LABS: Charge for UA Resulting for Rev
== END 2025-08-06 11:05 | disposition home or self-care (01) ==
PROVIDERS: Emergency Provider Emergency Medicine; PCP Electrodiagnostic Medicine
DX: G45.9 Transient cerebral ischemic attack, unspecified (principal); I10 Essential (primary) hypertension
CPT/HCPCS: 36415; 36416; 70450; 71045; 80053; 80306; 81003; 82962; 85025; 85610; 85730; 93005; 99285; J9999

== ENCOUNTER 2025-08-13 10:41 | Outpatient (CLI) | payer OTHER, SELFPAY ==
--- NOTE | 2025-08-13 10:50 | MR_ITS ---
WS: [id number] MRI HEAD WITH CONTRAST TECHNIQUE: Sagittal T1, T2 axial, T2 axial FLAIR, axial susceptibility weighted imaging, axial diffusion weighted images, and coronal T2 images were obtained. Pre and post-T1 axial and post T1 coronal images. ADC and FSPGR images. CLINICAL INFORMATION: OCULAR MIGRAINE COMPARISON: CT 06/23 FINDINGS: No evidence of restricted diffusion to suggest acute ischemia. Mild supratentorial white matter changes. No significant parenchymal volume loss. Normal vascular flow voids at the skull base. No extra-axial fluid collections. Mild mucosal thickening in the paranasal sinuses. Mastoid air cells are well a erated. No hemosiderin on susceptibility-weighted images. Normal optic chiasm and pituitary infundibulum. Benign enhancing venous angioma RIGHT frontal parietal junction. MR/MR head wo/w con [id number] IMPRESSION: 1. No evidence of restricted diffusion to suggest acute ischemia 2. Mild supratentorial white matter changes nonspecific in a patient this age but can be seen with hypertension, diabetes, and migraine headaches. 3. No significant parenchymal volume loss. 4. No hemosiderin. 5. No abnormal gadolinium enhancement. 6. Benign incidental venous angioma RIGHT frontal parietal junction.
[2025-08-13] MEDS: gadobenate dimeglumine 20 mL vial IV (11:31)
== END 2025-08-13 10:42 | disposition home or self-care (01) ==
LOC: RAD 10:42
PROVIDERS: PCP Electrodiagnostic Medicine; Visit Provider Electrodiagnostic Medicine
DX: Q28.3 Other malformations of cerebral vessels (principal); G93.89 Other specified disorders of brain; J34.89 Other specified disorders of nose and nasal sinuses
CPT/HCPCS: 70553